=== PATIENT | female | born 1965 | race Caucasian/White ===

== ENCOUNTER 2020-04-03 15:00 | Observation (INO) ==
[2020-04-03] MEDS ORDERED: 0.9 % Sodium Chloride 1,000 ML IVC ONE (15:11)
[2020-04-03] MEDS ORDERED: Ipratropium/Albuterol Neb 3 ML IH STA (15:17)
[2020-04-03] MEDS ORDERED: methylPREDNISolone 125 MG/2 ML VIAL IVP STA (15:18)
[2020-04-03] MEDS ORDERED: Azithromycin 500 MG in 0.9 % Sodium Chloride 250 ML IVPB ONE (15:58)
[2020-04-03] MEDS ORDERED: cefTRIAXone 2,000 MG in Water for inj. (sterile) 20 ML IVP ONE (15:58)
[2020-04-03 16:09] LABS: Eosinophils # 0.1 K/mcL (0.0-0.6); Eosinophils % 1.1 %; Hematocrit 37.4 % (35.3-44.9); Hemoglobin 12.2 g/dL (11.5-15.4); Immature Granulocytes % 0.4 % (0-4); Lymphocytes # 0.7 K/mcL (0.6-4.6); Lymphocytes % 9.1 %; Mean Corpuscular HGB Conc 32.6 g/dL (31.6-35.5); Mean Corpuscular Hemoglobin 31.9 pg (28.0-33.3); Mean Corpuscular Volume 97.9 fL (83.0-100.0); Mean Platelet Volume 8.4 fL (9.4-12.4); Monocytes # 0.4 K/mcL (0.0-1.3); Monocytes % 4.8 %; Neutrophils # 6.7 K/mcL (1.6-8.9); Platelet Count 190 K/mcL (140-400); Red Blood Count 3.82 M/mcL (3.82-4.97); Segmented Neutrophils % 84.6 %; White Blood Count 7.9 K/mcL (4.3-11.1)
[2020-04-03] MEDS ORDERED: Water for inj. (sterile) 20 ML IV ONE (16:13)
[2020-04-03 16:25] LABS: BUN/Creatinine Ratio 9 (6-26); Blood Urea Nitrogen 9 mg/dL (6-20); Calcium 8.7 mg/dL (8.6-10.3); Carbon Dioxide 25 mEq/L (23-29); Chloride 103 mEq/L (98-107); Glucose 121 mg/dL (70-105); Osmolality,Calculated 282 (280-300); Potassium 4.1 mEq/L (3.5-5.1); Sodium 136 mEq/L (136-145); Troponin I < 0.03 ng/mL (< 0.04); eGFR For African Americans > 60 (> 60); eGFR For Non-African Americans > 60 (> 60)
[2020-04-03] MEDS ORDERED: Ondansetron 4 MG/2 ML VIAL IVP PRN (17:17)
[2020-04-03] MEDS ORDERED: Naloxone 0.4 MG/ML INJ IVP PRN (17:17)
[2020-04-03] MEDS ORDERED: Dextrose Gel 15 GM/37.5 ML TUBE PO PRN ×2 (17:39)
[2020-04-03] MEDS ORDERED: *HR* Dextrose 50 % in Water (Vial) 50 ML VIAL IVP PRN (17:39)
[2020-04-03] MEDS ORDERED: D5% in Water 1,000 ML IVC PRN (17:39)
[2020-04-03] MEDS: *HR* Heparin 5,000 UNIT/ML VIAL SQ SCH (20:07)
[2020-04-03] MEDS: MethylPREDNISolone 40 MG/ML VIAL IVP SCH (20:07)
[2020-04-03] MEDS: Ringers Solution, Lactated 1,000 ML IVC SCH (20:07)
[2020-04-03] MEDS: Insulin LISPRO 300 UNITS/3 ML VIAL SQ SCH (20:07)
[2020-04-03] MEDS ORDERED: Levalbuterol Neb 0.63 MG/3 ML IH SCH (22:00)
[2020-04-03] MEDS ORDERED: Sennosides 8.6 MG TABLET PO PRN (22:12)
[2020-04-03] MEDS ORDERED: tiZANidine 4 MG TABLET PO PRN (22:12)
[2020-04-03] MEDS: traZODone 50 MG TABLET PO SCH (22:48)
[2020-04-03] MEDS: Gabapentin 300 MG CAPSULE PO SCH (22:48)
[2020-04-03] MEDS: Nicotine 14 MG PATCH.TD24 TD SCH (22:50)
[2020-04-03] MEDS: Budesonide/Formoterol 160/4.5 1 PUFF INH IH SCH (23:17)
[2020-04-04] MEDS: MethylPREDNISolone 40 MG/ML VIAL IVP SCH ×2 (05:09→16:52)
[2020-04-04] MEDS: *HR* Heparin 5,000 UNIT/ML VIAL SQ SCH ×2 (05:09→16:52)
[2020-04-04 06:07] LABS: Red Cell Distribution Width 15.1 % (11.5-14.5)
[2020-04-04 06:09] LABS: Basophils % 0.1 %; Hematocrit 33.4 % (35.3-44.9); Immature Granulocytes % 0.5 % (0-4); Lymphocytes # 0.4 K/mcL (0.6-4.6); Lymphocytes % 4.7 %; Mean Corpuscular HGB Conc 32.9 g/dL (31.6-35.5); Mean Corpuscular Hemoglobin 32.9 pg (28.0-33.3); Mean Platelet Volume 8.7 fL (9.4-12.4); Monocytes # 0.2 K/mcL (0.0-1.3); Neutrophils # 8.7 K/mcL (1.6-8.9); Platelet Count 194 K/mcL (140-400); Red Blood Count 3.34 M/mcL (3.82-4.97); Segmented Neutrophils % 92.7 %; White Blood Count 9.4 K/mcL (4.3-11.1)
[2020-04-04 06:17] LABS: BUN/Creatinine Ratio 14 (6-26); Blood Urea Nitrogen 12 mg/dL (6-20); Calcium 8.6 mg/dL (8.6-10.3); Carbon Dioxide 24 mEq/L (23-29); Chloride 107 mEq/L (98-107); Glucose 215 mg/dL (70-105); Magnesium 1.9 mg/dL (1.6-2.6); Osmolality,Calculated 294 (280-300); Potassium 4.3 mEq/L (3.5-5.1); Sodium 139 mEq/L (136-145); eGFR For African Americans > 60 (> 60); eGFR For Non-African Americans > 60 (> 60)
[2020-04-04 06:18] LABS: Platelet Estimate Normal (Normal)
[2020-04-04] MEDS: Budesonide/Formoterol 160/4.5 1 PUFF INH IH SCH ×2 (07:52→19:35)
[2020-04-04] MEDS: Gabapentin 300 MG CAPSULE PO SCH ×2 (07:53→21:36)
[2020-04-04] MEDS: clonazePAM 1 MG TABLET PO SCH (07:53)
[2020-04-04] MEDS: Nicotine 14 MG PATCH.TD24 TD SCH (07:53)
[2020-04-04] MEDS: Acetaminophen 325 MG TABLET PO PRN (07:53)
[2020-04-04] MEDS: Azithromycin 250 MG TABLET PO SCH (07:53)
[2020-04-04] MEDS: cefTRIAXone 1,000 MG in Water for inj. (sterile) 10 ML IVP SCH (08:05)
[2020-04-04] MEDS: Insulin LISPRO 300 UNITS/3 ML VIAL SQ SCH ×4 (08:23→21:31)
[2020-04-04] MEDS ORDERED: *HR* Glimepiride 4 MG TABLET PO SCH (09:00)
[2020-04-04] MEDS: Ringers Solution, Lactated 1,000 ML IVC SCH (13:02)
[2020-04-04] MEDS: traZODone 50 MG TABLET PO SCH (21:35)
[2020-04-05] MEDS: Acetaminophen 325 MG TABLET PO PRN (04:49)
[2020-04-05 05:04] LABS: Basophils % 0.1 %; Hematocrit 34.9 % (35.3-44.9); Immature Granulocytes % 2.4 % (0-4); Lymphocytes # 0.7 K/mcL (0.6-4.6); Lymphocytes % 7.1 %; Mean Corpuscular HGB Conc 31.5 g/dL (31.6-35.5); Mean Corpuscular Hemoglobin 31.5 pg (28.0-33.3); Mean Platelet Volume 8.5 fL (9.4-12.4); Monocytes # 0.3 K/mcL (0.0-1.3); Neutrophils # 8.4 K/mcL (1.6-8.9); Platelet Count 194 K/mcL (140-400); Red Blood Count 3.49 M/mcL (3.82-4.97); Red Cell Distribution Width 15.3 % (11.5-14.5); Segmented Neutrophils % 87.4 %; White Blood Count 9.6 K/mcL (4.3-11.1)
[2020-04-05 05:20] LABS: BUN/Creatinine Ratio 17 (6-26); Blood Urea Nitrogen 15 mg/dL (6-20); Calcium 9.8 mg/dL (8.6-10.3); Carbon Dioxide 29 mEq/L (23-29); Chloride 105 mEq/L (98-107); Glucose 187 mg/dL (70-105); Osmolality,Calculated 294 (280-300); Potassium 4.5 mEq/L (3.5-5.1); Sodium 139 mEq/L (136-145); eGFR For African Americans > 60 (> 60); eGFR For Non-African Americans > 60 (> 60)
[2020-04-05] MEDS: *HR* Heparin 5,000 UNIT/ML VIAL SQ SCH (05:52)
[2020-04-05] MEDS: MethylPREDNISolone 40 MG/ML VIAL IVP SCH (05:52)
[2020-04-05] MEDS: Gabapentin 300 MG CAPSULE PO SCH (07:47)
[2020-04-05] MEDS: Azithromycin 250 MG TABLET PO SCH (07:48)
[2020-04-05] MEDS: Nicotine 14 MG PATCH.TD24 TD SCH (07:48)
[2020-04-05] MEDS: cefTRIAXone 1,000 MG in Water for inj. (sterile) 10 ML IVP SCH (07:49)
[2020-04-05] MEDS: clonazePAM 1 MG TABLET PO SCH (07:50)
[2020-04-05] MEDS: Budesonide/Formoterol 160/4.5 1 PUFF INH IH SCH (07:50)
[2020-04-05] MEDS: Insulin LISPRO 300 UNITS/3 ML VIAL SQ SCH (08:17)
[2020-04-05 08:24] VITALS: BP 128/55
== END 2020-04-05 13:20 | disposition home or self-care (01) ==
LOC: EMEROOARM 15:00 → 2NENU 15:00
PROVIDERS: ADMIT Pharmacist; ATTEND Pharmacist

== ENCOUNTER 2020-09-21 11:33 | Observation (INO) ==
[2020-09-21] MEDS ORDERED: *HR* FentaNYL (PF) 100 MCG/2 ML VIAL IVP ONE (11:54)
[2020-09-21] MEDS ORDERED: Ondansetron 4 MG/2 ML VIAL IVP ONE (11:54)
[2020-09-21] MEDS ORDERED: Ketorolac 15 MG/ML VIAL IVP ONE (11:54)
[2020-09-21 12:40] LABS: Basophils % 0.2 %; Eosinophils % 0.3 %; Hematocrit 44.1 % (35.3-44.9); Hemoglobin 14.4 g/dL (11.5-15.4); Immature Granulocytes % 0.5 % (0-4); Lymphocytes # 1.1 K/mcL (0.6-4.6); Lymphocytes % 10.4 %; Mean Corpuscular HGB Conc 32.7 g/dL (31.6-35.5); Mean Corpuscular Hemoglobin 31.5 pg (28.0-33.3); Mean Corpuscular Volume 96.5 fL (83.0-100.0); Mean Platelet Volume 8.7 fL (9.4-12.4); Monocytes # 0.7 K/mcL (0.0-1.3); Neutrophils # 8.7 K/mcL (1.6-8.9); Platelet Count 332 K/mcL (140-400); Red Blood Count 4.57 M/mcL (3.82-4.97); Red Cell Distribution Width 13.5 % (11.5-14.5); Segmented Neutrophils % 81.6 %
[2020-09-21 12:49] LABS: Calcium 10.2 mg/dL (8.6-10.3); Potassium 3.8 mEq/L (3.5-5.1)
[2020-09-21] MEDS ORDERED: 0.9 % Sodium Chloride 1,000 ML IVC ONE (12:52)
[2020-09-21 12:53] LABS: White Blood Count 10.6 K/mcL (4.3-11.1)
[2020-09-21 12:53] LABS: Bacteria,Urine Few per hpf (None-Few); Bilirubin,Urine Negative (Negative); Blood,Urine Large (Negative); Clarity,Urine Ex.Turbid (Clear); Color,Urine Light-Brown (Yellow); Glucose,Urine (UA) 70 mg/dL (Normal); Hyaline Casts,Urine Moderate per lpf (None Seen); Ketones,Urine Trace mg/dL (Negative); Leukocyte Esterase,Urine Large (Negative); Mucus,Urine Few per lpf (None-Few); Nitrite,Urine Negative (Negative); Protein,Urine 200 mg/dL (Neg-Trace); RBC,Urine TNTC per hpf (0-3); Specific Gravity,Urine 1.025 (1.010-1.025); Squamous Epithelial Cell,Urine Moderate per hpf (None-Few); Urobilinogen,Urine Normal (Normal); WBC,Urine TNTC per hpf (0-3)
[2020-09-21] MEDS ORDERED: Metoclopramide 10 MG/2 ML VIAL IVP ONE (12:58)
[2020-09-21] MEDS ORDERED: *HR* HYDROmorphone (PF) 1 MG/ML SYRINGE IVP ONE (13:37)
[2020-09-21] MEDS ORDERED: diazePAM 10 MG/2 ML SYRINGE IVP ONE (13:37)
[2020-09-21] MEDS ORDERED: cefTRIAXone 1,000 MG in Water for inj. (sterile) 10 ML IVP ONE (13:37)
[2020-09-21] MEDS ORDERED: Naloxone 0.4 MG/ML INJ IVP PRN (14:33)
[2020-09-21] MEDS ORDERED: Dextrose Gel 15 GM/37.5 ML TUBE PO PRN ×2 (15:33)
[2020-09-21] MEDS ORDERED: D5% in Water 1,000 ML IVC PRN (15:33)
[2020-09-21] MEDS ORDERED: *HR* Dextrose 50 % in Water (Vial) 50 ML VIAL IVP PRN (15:33)
[2020-09-21] MEDS: Ondansetron 4 MG/2 ML VIAL IVP PRN (16:22)
[2020-09-21] MEDS: 0.9 % Sodium Chloride 1,000 ML IVC SCH (16:23)
[2020-09-21] MEDS: Insulin LISPRO 300 UNITS/3 ML VIAL SQ SCH ×2 (18:18→18:22)
[2020-09-21] MEDS ORDERED: Insulin LISPRO 300 UNITS/3 ML VIAL SQ SCH (21:00)
[2020-09-22] MEDS: Ondansetron 4 MG/2 ML VIAL IVP PRN ×2 (04:47→13:30)
[2020-09-22 05:31] LABS: BUN/Creatinine Ratio 21 (6-26); Blood Urea Nitrogen 20 mg/dL (6-20); Calcium 8.6 mg/dL (8.6-10.3); Carbon Dioxide 22 mEq/L (23-29); Chloride 106 mEq/L (98-107); Glucose 115 mg/dL (70-105); Magnesium 2.1 mg/dL (1.6-2.6); Osmolality,Calculated 290 (280-300); Phosphorous 2.9 mg/dL (2.7-4.5); Potassium 3.6 mEq/L (3.5-5.1); Sodium 138 mEq/L (136-145); eGFR For African Americans > 60 (> 60); eGFR For Non-African Americans > 60 (> 60)
[2020-09-22] MEDS: 0.9 % Sodium Chloride 1,000 ML IVC SCH (07:10)
[2020-09-22] MEDS: Insulin LISPRO 300 UNITS/3 ML VIAL SQ SCH ×2 (07:33→12:32)
[2020-09-22] MEDS ORDERED: tiZANidine 4 MG TABLET PO PRN (10:28)
[2020-09-22] MEDS ORDERED: FluocinoLONE Acet 0.025% CRM 15 GM TUBE TP PRN (10:28)
[2020-09-22] MEDS ORDERED: Sennosides 8.6 MG TABLET PO PRN (10:28)
[2020-09-22] MEDS ORDERED: Ipratropium/Albuterol Neb 3 ML IH PRN (10:28)
[2020-09-22] MEDS ORDERED: Albuterol 2.5 MG/3 ML NEBULIZER IH PRN (10:28)
[2020-09-22] MEDS ORDERED: clonazePAM 0.5 MG TABLET PO SCH (10:30)
[2020-09-22] MEDS ORDERED: Venlafaxine XR (24 HR) 37.5 MG CAP.ER.24H PO SCH (10:30)
[2020-09-22] MEDS ORDERED: Tiotropium 18 MCG inhalation IH SCH (10:30)
[2020-09-22] MEDS ORDERED: Venlafaxine XR (24 HR) 150 MG CAP.ER.24H PO SCH (10:30)
[2020-09-22] MEDS ORDERED: Gabapentin 300 MG CAPSULE PO SCH (10:30)
[2020-09-22] MEDS ORDERED: BREXPIPRAZOLE 3 MG PO SCH (10:30)
[2020-09-22] MEDS ORDERED: clonazePAM 1 MG TABLET PO SCH (12:00)
[2020-09-22 12:46] VITALS: BP 148/76
[2020-09-22] MEDS ORDERED: *HR* HYDROcodone/Acet 5/325 mg TABLET PO ONE (13:18)
[2020-09-22] MEDS ORDERED: cefTRIAXone 1,000 MG in Water for inj. (sterile) 10 ML IVP SCH (14:00)
[2020-09-22] MEDS ORDERED: NON-FORMULARY MEDICATION 1 EACH EACH (Trospium Chloride 20 MG) PO SCH (21:00)
[2020-09-22] MEDS ORDERED: traZODone 50 MG TABLET PO SCH (21:00)
[2020-09-22] MEDS ORDERED: Budesonide/Formoterol 160/4.5 1 PUFF INH IH SCH (22:00)
[2020-09-25 11:39] LABS: Calculi Mass 64 mg
== END 2020-09-22 16:11 | disposition home or self-care (01) ==
LOC: EMEROOARM 11:33 → 3BNU 11:33 → SUATTDRO 14:14 → 3BNU 15:19
PROVIDERS: ADMIT Internal Medicine; ATTEND Internal Medicine

== ENCOUNTER 2021-01-03 19:40 | Observation (INO) ==
[2021-01-03] MEDS ORDERED: Isovue-370 500 ML BOTTLE IVP ONE (20:16)
[2021-01-03] MEDS ORDERED: 0.9 % Sodium Chloride 1,000 ML IVC ONE (20:17)
[2021-01-03 20:38] LABS: Bilirubin,Urine Negative (Negative); Blood,Urine Negative (Negative); Clarity,Urine Clear (Clear); Color,Urine Colorless (Yellow); Glucose,Urine (UA) Normal (Normal); Ketones,Urine Negative (Negative); Leukocyte Esterase,Urine Negative (Negative); Nitrite,Urine Negative (Negative); PH,Urine 6.5 pH Units (5.0-8.0); Protein,Urine Negative (Neg-Trace); Specific Gravity,Urine 1.007 (1.010-1.025); Urobilinogen,Urine Normal (Normal)
[2021-01-03 21:06] LABS: Basophils % 0.2 %; Eosinophils # 0.1 K/mcL (0.0-0.6); Eosinophils % 1.3 %; Hematocrit 40.5 % (35.3-44.9); Hemoglobin 13.1 g/dL (11.5-15.4); Immature Granulocytes % 0.3 % (0-4); Lymphocytes # 1.5 K/mcL (0.6-4.6); Lymphocytes % 15.4 %; Mean Corpuscular HGB Conc 32.3 g/dL (31.6-35.5); Mean Platelet Volume 8.2 fL (9.4-12.4); Monocytes # 0.7 K/mcL (0.0-1.3); Monocytes % 7.4 %; Neutrophils # 7.5 K/mcL (1.6-8.9); Platelet Count 210 K/mcL (140-400); Red Blood Count 4.09 M/mcL (3.82-4.97); Red Cell Distribution Width 13.3 % (11.5-14.5); Segmented Neutrophils % 75.4 %
[2021-01-03 21:16] LABS: Activated Partial Thrombo Time 25.4 Seconds (26.0-36.0)
[2021-01-03 21:27] LABS: Alanine Aminotransferase 13 Units/L (7-52); Albumin 4.4 g/dL (3.5-5.7); Albumin/Globulin Ratio 1.4 (1.1-2.2); Alkaline Phosphatase 73 Units/L (34-104); Aspartate Amino Transferase 14 Units/L (13-39); BUN/Creatinine Ratio 14 (6-26); Bilirubin,Direct 0.1 mg/dL (0.0-0.2); Bilirubin,Indirect 0.3 mg/dL (0.0-1.0); Bilirubin,Total 0.4 mg/dL (0.3-1.0); Blood Urea Nitrogen 13 mg/dL (6-20); Calcium 9.2 mg/dL (8.6-10.3); Carbon Dioxide 23 mEq/L (23-29); Chloride 102 mEq/L (98-107); Globulin 3.1 g/dL (2.4-3.5); Glucose 84 mg/dL (70-105); Lipase 12 Units/L (11-82); Osmolality,Calculated 279 (280-300); Potassium 3.8 mEq/L (3.5-5.1); Sodium 135 mEq/L (136-145); Total Protein 7.5 g/dL (6.4-8.9); eGFR For African Americans > 60 (> 60); eGFR For Non-African Americans > 60 (> 60)
[2021-01-03 21:28] LABS: Troponin I < 0.03 ng/mL (< 0.04)
[2021-01-04] MEDS ORDERED: Morphine Sulfate 2 MG/ML SYRINGE IVP STA (00:07)
[2021-01-04] MEDS ORDERED: Aspirin 81 MG TAB.CHEW PO SCH ×2 (00:15→09:00)
[2021-01-04] MEDS ORDERED: Acetaminophen 325 MG TABLET PO PRN (00:57)
[2021-01-04] MEDS ORDERED: *HR* Dextrose 50 % in Water (Vial) 50 ML VIAL IVP PRN (01:20)
[2021-01-04] MEDS ORDERED: D5% in Water 1,000 ML IVC PRN (01:20)
[2021-01-04] MEDS ORDERED: Dextrose Gel 15 GM/37.5 ML TUBE PO PRN ×2 (01:20)
[2021-01-04] MEDS ORDERED: Aspirin 81 MG TAB.CHEW PO ONE (01:45)
[2021-01-04 02:09] VITALS: BP 107/66
[2021-01-04] MEDS ORDERED: Insulin LISPRO 300 UNITS/3 ML VIAL SUBQ SCH (06:00)
[2021-01-04] MEDS ORDERED: *HR* Enoxaparin 40 MG/0.4 ML SYRINGE SQ SCH (06:00)
[2021-01-04] MEDS ORDERED: Regadenoson 0.4 MG/5 ML SYRINGE IVP ONE (07:49)
[2021-01-05] MEDS ORDERED: Aspirin 81 MG TAB.CHEW PO SCH (09:00)
== END 2021-01-04 14:41 | disposition home or self-care (01) ==
LOC: EMEROOARM 19:40 → 3NENU 19:40 → SUATTDRO 01-04 01:08 → 3NENU 01-04 01:45
PROVIDERS: ADMIT Family Medicine; ATTEND Internal Medicine

== ENCOUNTER 2021-09-14 12:22 | Inpatient (IN) ==
[2021-09-14] MEDS ORDERED: Naloxone 0.4 MG/ML INJ IVP PRN (15:27)
[2021-09-14] MEDS ORDERED: *HR* HYDROcodone/Acet 5/325 mg TABLET PO PRN (15:27)
[2021-09-14] MEDS ORDERED: Ondansetron 4 MG/2 ML VIAL IVP PRN (15:27)
[2021-09-14] MEDS ORDERED: Ipratropium/Albuterol Neb 3 ML IH PRN (15:31)
[2021-09-14] MEDS ORDERED: *HR* Dextrose 50 % in Water (Syg) 50 ML SYRINGE IVP PRN (15:32)
[2021-09-14] MEDS ORDERED: D5% in Water 1,000 ML IVC PRN (15:32)
[2021-09-14] MEDS ORDERED: Dextrose Gel 15 GM/37.5 ML TUBE PO PRN ×2 (15:32)
[2021-09-14] MEDS: Insulin LISPRO 300 UNITS/3 ML VIAL SUBQ SCH (17:33)
[2021-09-14] MEDS: Piperacillin/Tazobactam 3.375 GM in 0.9 % Sodium Chloride Mini Bag 100 ML IVPB SCH (17:33)
[2021-09-14] MEDS: MethylPREDNISolone 40 MG/ML VIAL IVP SCH (17:33)
[2021-09-14] MEDS: Insulin DETEMIR 100 UNIT/ML X5UNITS SUBQ SCH (20:07)
[2021-09-14] MEDS: traZODone 50 MG TABLET PO SCH (20:07)
[2021-09-14] MEDS: Gabapentin 300 MG CAPSULE PO SCH (20:08)
[2021-09-14] MEDS: clonazePAM 1 MG TABLET PO SCH (20:08)
[2021-09-14] MEDS: Budesonide/Formoterol 160/4.5 1 PUFF INH IH SCH (20:29)
[2021-09-15] MEDS: Piperacillin/Tazobactam 3.375 GM in 0.9 % Sodium Chloride Mini Bag 100 ML IVPB SCH ×3 (02:40→17:33)
[2021-09-15] MEDS: *HR* Enoxaparin 40 MG/0.4 ML SYRINGE SQ SCH (04:52)
[2021-09-15] MEDS: MethylPREDNISolone 40 MG/ML VIAL IVP SCH ×2 (04:52→17:33)
[2021-09-15 05:43] LABS: Basophils % 0.1 %; Hematocrit 37.1 % (35.3-44.9); Hemoglobin 11.8 g/dL (11.5-15.4); Immature Granulocytes % 0.6 % (0-4); Lymphocytes # 0.5 K/mcL (0.6-4.6); Lymphocytes % 5.3 %; Mean Corpuscular HGB Conc 31.8 g/dL (31.6-35.5); Mean Corpuscular Hemoglobin 32.5 pg (28.0-33.3); Mean Corpuscular Volume 102.2 fL (83.0-100.0); Mean Platelet Volume 8.6 fL (9.4-12.4); Monocytes # 0.4 K/mcL (0.0-1.3); Monocytes % 4.7 %; Neutrophils # 8.3 K/mcL (1.6-8.9); Platelet Count 239 K/mcL (140-400); Red Blood Count 3.63 M/mcL (3.82-4.97); Red Cell Distribution Width 13.7 % (11.5-14.5); Segmented Neutrophils % 89.3 %; White Blood Count 9.3 K/mcL (4.3-11.1)
[2021-09-15 05:57] LABS: INR 1.1; Prothrombin Time 11.8 Seconds (9.4-12.1)
[2021-09-15 06:00] LABS: Activated Partial Thrombo Time 26.1 Seconds (26.0-36.0)
[2021-09-15 06:03] LABS: BUN/Creatinine Ratio 16 (6-26); Blood Urea Nitrogen 14 mg/dL (6-20); Carbon Dioxide 26 mEq/L (23-29); Chloride 103 mEq/L (98-107); Glucose 192 mg/dL (70-105); Magnesium 2.3 mg/dL (1.6-2.6); Osmolality,Calculated 288 (280-300); Phosphorous 3.7 mg/dL (2.7-4.5); Potassium 4.8 mEq/L (3.5-5.1); Sodium 136 mEq/L (136-145); eGFR For African Americans > 60 (> 60); eGFR For Non-African Americans > 60 (> 60)
[2021-09-15] MEDS: Insulin LISPRO 300 UNITS/3 ML VIAL SUBQ SCH ×3 (08:48→16:46)
[2021-09-15] MEDS: Venlafaxine XR (24 HR) 150 MG CAP.ER.24H PO SCH (08:49)
[2021-09-15] MEDS: Azithromycin 500 MG in 0.9 % Sodium Chloride 250 ML IVPB SCH (08:49)
[2021-09-15] MEDS: Gabapentin 300 MG CAPSULE PO SCH ×2 (08:49→19:36)
[2021-09-15] MEDS: Aspirin 81 MG TAB.CHEW PO SCH (08:49)
[2021-09-15] MEDS: clonazePAM 0.5 MG TABLET PO SCH (08:49)
[2021-09-15] MEDS ORDERED: Venlafaxine XR (24 HR) 37.5 MG CAP.ER.24H PO SCH (09:00)
[2021-09-15] MEDS ORDERED: Albuterol 2.5 MG/3 ML NEBULIZER IH PRN (09:00)
[2021-09-15] MEDS ORDERED: Cholecalciferol (D-3) 1,000 UNIT (25MCG) TABLET PO SCH (09:00)
[2021-09-15] MEDS: Insulin DETEMIR 100 UNIT/ML X5UNITS SUBQ SCH ×2 (09:57→20:55)
[2021-09-15] MEDS: Cholecalciferol (D-3) 1,000 UNIT (25MCG) TABLET PO SCH (10:05)
[2021-09-15] MEDS: Ipratropium/Albuterol Neb 3 ML IH SCH ×3 (10:52→20:51)
[2021-09-15] MEDS: Budesonide/Formoterol 160/4.5 1 PUFF INH IH SCH ×2 (10:52→20:51)
[2021-09-15] MEDS: clonazePAM 1 MG TABLET PO SCH ×2 (12:32→16:59)
[2021-09-15] MEDS ORDERED: 0.9 % Sodium Chloride 1,000 ML IVC ONE (12:37)
[2021-09-15] MEDS: OXcarbazepine 150 MG TABLET PO SCH (19:36)
[2021-09-15] MEDS: traZODone 50 MG TABLET PO SCH (19:36)
[2021-09-16] MEDS: Ipratropium/Albuterol Neb 3 ML IH SCH ×7 (00:06→23:49)
[2021-09-16] MEDS: Piperacillin/Tazobactam 3.375 GM in 0.9 % Sodium Chloride Mini Bag 100 ML IVPB SCH ×3 (03:41→17:32)
[2021-09-16] MEDS: MethylPREDNISolone 40 MG/ML VIAL IVP SCH ×3 (05:18→17:33)
[2021-09-16] MEDS: *HR* Enoxaparin 40 MG/0.4 ML SYRINGE SQ SCH (05:18)
[2021-09-16] MEDS: Budesonide/Formoterol 160/4.5 1 PUFF INH IH SCH ×2 (07:49→19:57)
[2021-09-16] MEDS: Aspirin 81 MG TAB.CHEW PO SCH (08:12)
[2021-09-16] MEDS: Venlafaxine XR (24 HR) 150 MG CAP.ER.24H PO SCH (08:14)
[2021-09-16] MEDS: Gabapentin 300 MG CAPSULE PO SCH ×2 (08:15→20:29)
[2021-09-16] MEDS: clonazePAM 0.5 MG TABLET PO SCH (08:15)
[2021-09-16] MEDS: Lurasidone 20 MG TABLET PO SCH (08:15)
[2021-09-16] MEDS: OXcarbazepine 150 MG TABLET PO SCH ×2 (08:16→20:29)
[2021-09-16] MEDS: Cholecalciferol (D-3) 1,000 UNIT (25MCG) TABLET PO SCH (08:16)
[2021-09-16] MEDS: OLANZapine 5 MG TAB.RAPDIS PO SCH (08:16)
[2021-09-16] MEDS: Insulin LISPRO 300 UNITS/3 ML VIAL SUBQ SCH ×3 (08:18→16:14)
[2021-09-16] MEDS: Insulin DETEMIR 100 UNIT/ML X5UNITS SUBQ SCH ×2 (08:20→20:29)
[2021-09-16] MEDS: Azithromycin 500 MG in 0.9 % Sodium Chloride 250 ML IVPB SCH (08:22)
[2021-09-16] MEDS: clonazePAM 1 MG TABLET PO SCH ×2 (11:34→20:32)
[2021-09-16 15:17] LABS: Basophils % 0.1 %; Hematocrit 37.2 % (35.3-44.9); Hemoglobin 11.7 g/dL (11.5-15.4); Immature Granulocytes % 0.8 % (0-4); Lymphocytes # 0.4 K/mcL (0.6-4.6); Lymphocytes % 3.7 %; Mean Corpuscular HGB Conc 31.5 g/dL (31.6-35.5); Mean Corpuscular Hemoglobin 32.1 pg (28.0-33.3); Mean Corpuscular Volume 102.2 fL (83.0-100.0); Mean Platelet Volume 8.6 fL (9.4-12.4); Monocytes # 0.2 K/mcL (0.0-1.3); Monocytes % 2.1 %; Neutrophils # 9.5 K/mcL (1.6-8.9); Platelet Count 293 K/mcL (140-400); Red Blood Count 3.64 M/mcL (3.82-4.97); Red Cell Distribution Width 13.7 % (11.5-14.5); Segmented Neutrophils % 93.3 %; White Blood Count 10.2 K/mcL (4.3-11.1)
[2021-09-16 15:43] LABS: BUN/Creatinine Ratio 24 (6-26); Blood Urea Nitrogen 25 mg/dL (6-20); Calcium 8.8 mg/dL (8.6-10.3); Carbon Dioxide 25 mEq/L (23-29); Chloride 103 mEq/L (98-107); Glucose 359 mg/dL (70-105); Osmolality,Calculated 299 (280-300); Potassium 4.7 mEq/L (3.5-5.1); Sodium 135 mEq/L (136-145); eGFR For African Americans > 60 (> 60); eGFR For Non-African Americans 55 (> 60)
[2021-09-16] MEDS: traZODone 50 MG TABLET PO SCH (20:28)
[2021-09-16] MEDS ORDERED: Nicotine 21 MG PATCH.TD24 TD SCH (22:00)
[2021-09-17] MEDS: MethylPREDNISolone 40 MG/ML VIAL IVP SCH ×2 (03:15→11:44)
[2021-09-17] MEDS: Piperacillin/Tazobactam 3.375 GM in 0.9 % Sodium Chloride Mini Bag 100 ML IVPB SCH ×2 (03:15→11:45)
[2021-09-17] MEDS ORDERED: MOM Conc 10 ML UD.LIQ PO ONE (03:38)
[2021-09-17] MEDS: Ipratropium/Albuterol Neb 3 ML IH SCH ×3 (04:02→11:39)
[2021-09-17 04:50] VITALS: BP 138/50; PULSE 62; TEMP 99.2; O2SAT 98
[2021-09-17] MEDS: *HR* Enoxaparin 40 MG/0.4 ML SYRINGE SQ SCH (04:52)
[2021-09-17 07:15] LABS: BUN/Creatinine Ratio 30 (6-26); Blood Urea Nitrogen 24 mg/dL (6-20); Calcium 9.5 mg/dL (8.6-10.3); Carbon Dioxide 27 mEq/L (23-29); Chloride 101 mEq/L (98-107); Glucose 216 mg/dL (70-105); Magnesium 2.5 mg/dL (1.6-2.6); Osmolality,Calculated 293 (280-300); Phosphorous 3.7 mg/dL (2.7-4.5); Potassium 4.5 mEq/L (3.5-5.1); Sodium 136 mEq/L (136-145); eGFR For African Americans > 60 (> 60); eGFR For Non-African Americans > 60 (> 60)
[2021-09-17 07:20] LABS: Basophils % 0.1 %; Hematocrit 38.7 % (35.3-44.9); Hemoglobin 12.6 g/dL (11.5-15.4); Immature Granulocytes % 1.3 % (0-4); Lymphocytes # 0.7 K/mcL (0.6-4.6); Lymphocytes % 4.9 %; Mean Corpuscular HGB Conc 32.6 g/dL (31.6-35.5); Mean Corpuscular Hemoglobin 31.8 pg (28.0-33.3); Mean Corpuscular Volume 97.7 fL (83.0-100.0); Mean Platelet Volume 8.4 fL (9.4-12.4); Monocytes # 0.5 K/mcL (0.0-1.3); Monocytes % 3.2 %; Neutrophils # 12.8 K/mcL (1.6-8.9); Platelet Count 295 K/mcL (140-400); Red Blood Count 3.96 M/mcL (3.82-4.97); Red Cell Distribution Width 13.2 % (11.5-14.5); Segmented Neutrophils % 90.5 %; White Blood Count 14.2 K/mcL (4.3-11.1)
[2021-09-17] MEDS: Budesonide/Formoterol 160/4.5 1 PUFF INH IH SCH (07:51)
[2021-09-17] MEDS ORDERED: Sennosides 8.6 MG TABLET PO PRN (08:06)
[2021-09-17] MEDS: Venlafaxine XR (24 HR) 150 MG CAP.ER.24H PO SCH (08:15)
[2021-09-17] MEDS: Cholecalciferol (D-3) 1,000 UNIT (25MCG) TABLET PO SCH (08:15)
[2021-09-17] MEDS: Lurasidone 20 MG TABLET PO SCH (08:15)
[2021-09-17] MEDS: OLANZapine 5 MG TAB.RAPDIS PO SCH (08:15)
[2021-09-17] MEDS: clonazePAM 0.5 MG TABLET PO SCH (08:15)
[2021-09-17] MEDS: Azithromycin 500 MG in 0.9 % Sodium Chloride 250 ML IVPB SCH (08:16)
[2021-09-17] MEDS: Gabapentin 300 MG CAPSULE PO SCH (08:16)
[2021-09-17] MEDS: OXcarbazepine 150 MG TABLET PO SCH (08:16)
[2021-09-17] MEDS: Insulin LISPRO 300 UNITS/3 ML VIAL SUBQ SCH ×2 (08:17→11:50)
[2021-09-17] MEDS ORDERED: NON-FORMULARY MEDICATION 1 EACH EACH (Cholecalciferol (Vitamin D3) [Vitamin D3] 25 MCG Cap PO SCH (09:00)
[2021-09-17] MEDS ORDERED: Cyanocobalamin (B-12) 1,000 MCG TABLET PO SCH (09:00)
[2021-09-17] MEDS: clonazePAM 1 MG TABLET PO SCH (11:44)
[2021-09-17] MEDS: Insulin DETEMIR 100 UNIT/ML X5UNITS SUBQ SCH (11:44)
== END 2021-09-17 15:23 | disposition home or self-care (01) | DRG 139 ==
LOC: 2NENU → SUATTDRO 09-15 16:43
PROVIDERS: ADMIT Pharmacist; ATTEND Internal Medicine